=== PATIENT | male | born 1975 | race Caucasian/White ===

== ENCOUNTER → 2021-12-09 | Day surgery (SDC) | payer OTHER ==
[~2021-12-09] MED LIST: ATIVAN0.5 MG PO; CLONIDINE HCL0.1 MG PO; CYCLOBENZAPRINE5 MG PO; FENTANYL CITRATE/PF 100MCG/2 ML INJ ONE; MIDAZOLAM HCL 2 MG/2 ML VIAL ONE; OR PHACO EYE KIT ONE; PREOP PHACO EYE KIT ONE
[2021-12-09 11:20] VITALS: BP 123/87
== END | disposition home or self-care (01) ==
LOC: OR 06:44
PROVIDERS: ATTEND Ophthalmology
DX: H25.12 Age-related nuclear cataract, left eye (principal); F41.9 Anxiety disorder, unspecified; F17.210 Nicotine dependence, cigarettes, uncomplicated; Z01.812 Encounter for preprocedural laboratory examination; Z20.822 Contact with and (suspected) exposure to COVID-19; Z79.899 Other long term (current) drug therapy
CPT/HCPCS: 66984; U0002; J2250; J3010

== ENCOUNTER → 2021-12-30 | Day surgery (SDC) | payer OTHER ==
[2021-12-30 14:30] VITALS: BP 122/63
== END | disposition home or self-care (01) ==
LOC: OR 10:19
PROVIDERS: ATTEND Ophthalmology
DX: H25.11 Age-related nuclear cataract, right eye (principal); F41.9 Anxiety disorder, unspecified; F17.210 Nicotine dependence, cigarettes, uncomplicated; Z01.812 Encounter for preprocedural laboratory examination; Z20.822 Contact with and (suspected) exposure to COVID-19; Z79.899 Other long term (current) drug therapy
CPT/HCPCS: 66984; U0002; J2250; J3010; V2632